=== PATIENT | female | born 1955 | race Caucasian/White ===

== ENCOUNTER → 2016-06-16 | Outpatient (CLI) | payer OTHER | END | disposition home or self-care (01) | LOC: MRI 06:53 | PROVIDERS: ATTEND Orthopaedic Surgery Sports Medicine | DX: S46.211A Strain of muscle, fascia and tendon of other parts of biceps, right arm, initial encounter (principal); M75.111 Incomplete rotator cuff tear or rupture of right shoulder, not specified as traumatic; X58.XXXA Exposure to other specified factors, initial encounter; Y93.89 Activity, other specified; Y92.89 Other specified places as the place of occurrence of the external cause; Y99.8 Other external cause status | CPT/HCPCS: 73221 ==

== ENCOUNTER → 2016-08-18 | Outpatient (CLI) | payer BC | END | disposition home or self-care (01) | LOC: LAB 08:33 | DX: T84.84XA Pain due to internal orthopedic prosthetic devices, implants and grafts, initial encounter (principal); X58.XXXA Exposure to other specified factors, initial encounter | CPT/HCPCS: 36415; 85651; 86140 ==

== ENCOUNTER → 2016-10-19 | Outpatient (CLI) | payer BC | END | disposition home or self-care (01) | LOC: MAMMO 06:23 | PROVIDERS: ATTEND Obstetrics & Gynecology Obstetrics | DX: Z12.31 Encounter for screening mammogram for malignant neoplasm of breast (principal) | CPT/HCPCS: G0202 ==

== ENCOUNTER → 2017-10-06 | Outpatient (CLI) | payer OTHER | END | disposition home or self-care (01) | LOC: MRI 07:53 | PROVIDERS: ATTEND Specialist | DX: M48.07 Spinal stenosis, lumbosacral region (principal); M47.896 Other spondylosis, lumbar region | CPT/HCPCS: 72148 ==

== ENCOUNTER → 2017-10-25 | Outpatient (CLI) | payer BC ==
[2017-10-25 08:42] LABS: BASOPHILS % 0.9 % (0.0-2.0); EOSINOPHILS % 3.4 % (0.0-5.0); HEMATOCRIT. 41.1 % (36.0-48.0); HEMOGLOBIN. 14.3 g/dL (12.0-16.0); LYMPHOCYTES % 30.3 % (20.0-50.0); MEAN CORPUSCULAR HEMOGLOBIN 33.3 pg (28.0-32.0); MEAN CORPUSCULAR VOLUME 95.6 fL (81.0-99.0); MONOCYTES % 12.7 % (2.0-8.0); NEUTROPHILS % 52.7 % (40.0-76.0); PLATELET 254 x1000/uL (130-400); RED CELL DISTRIBUTION WIDTH 12.6 % (11.6-14.6)
[2017-10-25 09:03] LABS: CHLORIDE 107 mEq/L (98-107)
[2017-10-25 09:13] LABS: LDL CHOLESTEROL 109 mg/dL (5-100)
[2017-10-25 09:17] LABS: HDL CHOLESTEROL 62 mg/dL (40-59)
[2017-10-27 06:19] LABS: CANCER ANTIGEN 125 8.9 U/mL (0.0-38.1)
== END | disposition home or self-care (01) ==
LOC: LAB 07:26 → MERGE 07:26
PROVIDERS: ATTEND Obstetrics & Gynecology Obstetrics
DX: Z12.31 Encounter for screening mammogram for malignant neoplasm of breast (principal); R92.1 Mammographic calcification found on diagnostic imaging of breast; E03.9 Hypothyroidism, unspecified; D64.9 Anemia, unspecified; N83.201 Unspecified ovarian cyst, right side; E55.9 Vitamin D deficiency, unspecified; E78.00 Pure hypercholesterolemia, unspecified; E78.4 Other hyperlipidemia
CPT/HCPCS: 36415; 77067; 80053; 80061; 82306; 83036; 84443; 85025; 86304; 86305

== ENCOUNTER 2018-10-02 03:36 | Emergency (ER) | payer BC, OTHER ==
[~2018-10-02] VITALS: Ht 170.2 cm; Wt 67.0 kg
[2018-10-02 05:18] VITALS: BP 132/78
== END 2018-10-02 05:19 | disposition home or self-care (01) ==
LOC: ER 03:36
DX: J02.9 Acute pharyngitis, unspecified (principal); Z98.890 Other specified postprocedural states
CPT/HCPCS: 87070; 87430; 99281

== ENCOUNTER → 2018-10-20 | Outpatient (CLI) | payer BC ==
[2018-10-20 08:05] LABS: BASOPHILS % 0.9 % (0.0-2.0); EOSINOPHILS % 3.1 % (0.0-5.0); HEMATOCRIT. 38.2 % (36.0-48.0); HEMOGLOBIN. 13.3 g/dL (12.0-16.0); LYMPHOCYTES % 28.6 % (20.0-50.0); MEAN CORPUSCULAR VOLUME 94.7 fL (81.0-99.0); MEAN PLATELET VOLUME 8.5 fl (7.4-10.4); MONOCYTES % 13.1 % (2.0-8.0); NEUTROPHILS % 54.3 % (40.0-76.0); PLATELET 222 x1000/uL (130-400); RED BLOOD CELL COUNT 4.03 mill/uL (4.2-5.4); RED CELL DISTRIBUTION WIDTH 12.6 % (11.6-14.6)
[2018-10-20 08:11] LABS: CHLORIDE 111 mEq/L (98-107)
[2018-10-20 08:18] LABS: LDL CHOLESTEROL 123 mg/dL (5-100)
[2018-10-20 08:19] LABS: HDL CHOLESTEROL 78 mg/dL (40-59)
[2018-10-21 15:14] LABS: PROLACTIN 5.6 ng/mL (4.8-23.3)
[2018-10-23 10:11] LABS: VITAMIN D 1-25 DIHYDROXY 65.9 pg/mL (19.9-79.3)
== END | disposition home or self-care (01) ==
LOC: LAB 06:57
PROVIDERS: ATTEND Obstetrics & Gynecology Obstetrics
DX: Z13.21 Encounter for screening for nutritional disorder (principal); R97.1 Elevated cancer antigen 125 [CA 125]; R94.6 Abnormal results of thyroid function studies; R79.89 Other specified abnormal findings of blood chemistry; D58.2 Other hemoglobinopathies
CPT/HCPCS: 36415; 80061; 82652; 83036; 84146; 84443; 86304; 86305

== ENCOUNTER → 2018-10-23 | Outpatient (CLI) | payer BC | END | disposition home or self-care (01) | LOC: MAMMO 09:25 | PROVIDERS: ATTEND Obstetrics & Gynecology Obstetrics | DX: R92.2 Inconclusive mammogram (principal) | CPT/HCPCS: 76642; 77066 ==

== ENCOUNTER → 2019-11-05 | Outpatient (CLI) | payer BC ==
[2019-11-05 06:31] LABS: EOSINOPHILS % 3.4 % (0.0-5.0); HEMOGLOBIN. 13.8 g/dL (12.0-16.0); LYMPHOCYTES % 31.7 % (20.0-50.0); MEAN CORPUSCULAR VOLUME 93.5 fL (81.0-99.0); MEAN PLATELET VOLUME 8.3 fl (7.4-10.4); NEUTROPHILS % 50.9 % (40.0-76.0); PLATELET 259 x1000/uL (130-400); RED BLOOD CELL COUNT 4.17 mill/uL (4.2-5.4); RED CELL DISTRIBUTION WIDTH 12.6 % (11.6-14.6)
[2019-11-05 06:39] LABS: CLARITY URINE CLEAR (CLEAR); COLOR URINE YELLOW (YELLOW); KETONES URINE NEGATIVE (NEGATIVE); LEUKOCYTE ESTERASE URINE NEGATIVE (NEGATIVE); NITRITE URINE NEGATIVE (NEGATIVE); OCCULT BLOOD URINE TRACE (NEGATIVE); PROTEIN URINE NEGATIVE (NEGATIVE); SPECIFIC GRAVITY URINE 1.015 (1.005-1.030); UROBILINOGEN URINE 0.2 E.U./dL (0.2-1.0)
== END | disposition home or self-care (01) ==
LOC: LAB 06:00
PROVIDERS: ATTEND Obstetrics & Gynecology Obstetrics
DX: Z13.29 Encounter for screening for other suspected endocrine disorder (principal); E78.00 Pure hypercholesterolemia, unspecified; E55.9 Vitamin D deficiency, unspecified; D64.9 Anemia, unspecified; N30.20 Other chronic cystitis without hematuria; Z12.73 Encounter for screening for malignant neoplasm of ovary
CPT/HCPCS: 36415; 80061; 81003; 82306; 82378; 82947; 83036; 85025; 86304

== ENCOUNTER → 2019-11-14 | Outpatient (CLI) | payer BC | END | disposition home or self-care (01) | LOC: LAB 06:37 | PROVIDERS: ATTEND Obstetrics & Gynecology Obstetrics | DX: Z01.812 Encounter for preprocedural laboratory examination (principal); Z20.828 Contact with and (suspected) exposure to other viral communicable diseases | CPT/HCPCS: C9803; U0003 ==

== ENCOUNTER → 2020-08-12 | Outpatient (CLI) | payer BC | END | disposition home or self-care (01) | LOC: US 08:46 | PROVIDERS: ATTEND Internal Medicine | DX: L90.5 Scar conditions and fibrosis of skin (principal) | CPT/HCPCS: 76700 ==

== ENCOUNTER 2020-08-13 08:40 | Emergency (ER) | payer BC ==
[~2020-08-13] VITALS: Ht 167.6 cm; Wt 77.0 kg
[2020-08-13 08:45] VITALS: BP 163/97
== END 2020-08-13 10:15 | disposition left against medical advice (07) ==
LOC: ER 08:42
DX: Z53.21 Procedure and treatment not carried out due to patient leaving prior to being seen by health care provider (principal)

== ENCOUNTER → 2021-03-26 | Outpatient (CLI) | payer MEDICARE, BC ==
[2021-03-26 11:50] LABS: BASOPHILS % 0.9 % (0.0-2.0); EOSINOPHILS % 1.9 % (0.0-5.0); HEMATOCRIT. 38.1 % (36.0-48.0); HEMOGLOBIN. 13.5 g/dL (12.0-16.0); LYMPHOCYTES % 26.3 % (20.0-50.0); MEAN CORPUSCULAR VOLUME 93.4 fL (81.0-99.0); MEAN PLATELET VOLUME 8.4 fl (7.4-10.4); MONOCYTES % 10.2 % (2.0-8.0); NEUTROPHILS % 60.7 % (40.0-76.0); PLATELET 250 x1000/uL (130-400); RED BLOOD CELL COUNT 4.08 mill/uL (4.2-5.4); RED CELL DISTRIBUTION WIDTH 13.2 % (11.6-14.6)
[2021-03-26 12:02] LABS: CHLORIDE 110 mEq/L (98-107)
[2021-03-26 12:10] LABS: HDL CHOLESTEROL 73 mg/dL (40-59)
[2021-03-26 12:11] LABS: LDL CHOLESTEROL 114 mg/dL (5-100)
[2021-03-27 04:07] LABS: CANCER ANTIGEN 125 7.9 U/mL (0.0-38.1)
== END | disposition home or self-care (01) ==
LOC: LAB 10:52
PROVIDERS: ATTEND Obstetrics & Gynecology Obstetrics
DX: Z13.220 Encounter for screening for lipoid disorders (principal); E03.9 Hypothyroidism, unspecified; Z13.228 Encounter for screening for other metabolic disorders; Z13.1 Encounter for screening for diabetes mellitus; Z13.0 Encounter for screening for diseases of the blood and blood-forming organs and certain disorders involving the immune mechanism; Z85.43 Personal history of malignant neoplasm of ovary
CPT/HCPCS: 36415; 80053; 80061; 82378; 83036; 84443; 85025; 86301; 86304; 86305

== ENCOUNTER → 2021-12-28 | Outpatient (CLI) | payer MEDICARE, BC | END | disposition home or self-care (01) | LOC: MAMMO 07:31 | PROVIDERS: ATTEND Obstetrics & Gynecology Obstetrics | DX: Z12.31 Encounter for screening mammogram for malignant neoplasm of breast (principal) | CPT/HCPCS: 77067 ==

== ENCOUNTER → 2022-01-19 | Outpatient (CLI) | payer MEDICARE, BC ==
[2022-01-19 08:52] LABS: BASOPHILS % 0.8 % (0.0-2.0); EOSINOPHILS % 3.8 % (0.0-5.0); HEMATOCRIT. 39.9 % (36.0-48.0); HEMOGLOBIN. 13.8 g/dL (12.0-16.0); MEAN CORPUSCULAR HEMOGLOBIN 32.7 pg (28.0-32.0); MEAN CORPUSCULAR VOLUME 94.5 fL (81.0-99.0); MEAN PLATELET VOLUME 8.6 fl (7.4-10.4); MONOCYTES % 11.7 % (2.0-8.0); NEUTROPHILS % 52.7 % (40.0-76.0); PLATELET 253 x1000/uL (130-400); RED BLOOD CELL COUNT 4.22 mill/uL (4.2-5.4); RED CELL DISTRIBUTION WIDTH 13.2 % (11.6-14.6)
[2022-01-19 09:32] LABS: VITAMIN B12 SERUM 793 pg/mL (211-911)
[2022-01-19 09:57] LABS: CHLORIDE 112 mEq/L (98-107)
[2022-01-19 10:12] LABS: HDL CHOLESTEROL 68 mg/dL (40-59); LDL CHOLESTEROL 118 mg/dL (5-100)
[2022-01-20 09:06] LABS: VITAMIN D 25-OH 37.1 ng/mL (30.0-100.0)
[2022-01-20 10:07] LABS: ANTI-NUCLEAR ANTIBODIES DIRECT Negative (Negative)
== END | disposition home or self-care (01) ==
LOC: LAB 07:27
PROVIDERS: ATTEND Internal Medicine
DX: R53.83 Other fatigue (principal); B02.9 Zoster without complications; M15.9 Polyosteoarthritis, unspecified; E78.5 Hyperlipidemia, unspecified; Z86.2 Personal history of diseases of the blood and blood-forming organs and certain disorders involving the immune mechanism
CPT/HCPCS: 36415; 80053; 80061; 82306; 82607; 83036; 84443; 85025; 85651; 86038; 86430

== ENCOUNTER → 2022-09-30 | Outpatient (CLI) | payer MEDICARE, BC ==
[2022-09-30 10:40] LABS: EOSINOPHILS % 3.1 % (0.0-5.0); HEMATOCRIT. 39.7 % (36.0-48.0); HEMOGLOBIN. 13.7 g/dL (12.0-16.0); LYMPHOCYTES % 33.3 % (20.0-50.0); MEAN CORPUSCULAR HEMOGLOBIN 32.8 pg (28.0-32.0); MEAN CORPUSCULAR HGB CONC 34.6 g/dL (31.0-37.0); MEAN CORPUSCULAR VOLUME 94.8 fL (81.0-99.0); MEAN PLATELET VOLUME 8.4 fl (7.4-10.4); MONOCYTES % 12.4 % (2.0-8.0); NEUTROPHILS % 50.2 % (40.0-76.0); PLATELET 260 x1000/uL (130-400); RED BLOOD CELL COUNT 4.19 mill/uL (4.2-5.4); RED CELL DISTRIBUTION WIDTH 12.7 % (11.6-14.6); WHITE BLOOD COUNT 3.8 x1000/uL (4.5-11.0)
[2022-09-30 11:01] LABS: THYROID STIMULATING HORMONE 2.5 uIU/mL (0.36-3.74)
[2022-10-01 08:08] LABS: CA 19-9 < 2 U/mL (0-35); CANCER ANTIGEN 125 6.1 U/mL (0.0-38.1); HUMAN EPIDIDYMIS PROTEIN 4 48.8 pmol/L (0.0-96.5)
== END | disposition home or self-care (01) ==
LOC: LAB 10:03
PROVIDERS: ATTEND Obstetrics & Gynecology Obstetrics
DX: Z13.220 Encounter for screening for lipoid disorders (principal); Z13.228 Encounter for screening for other metabolic disorders; Z13.29 Encounter for screening for other suspected endocrine disorder; Z13.0 Encounter for screening for diseases of the blood and blood-forming organs and certain disorders involving the immune mechanism; Z13.1 Encounter for screening for diabetes mellitus; D39.0 Neoplasm of uncertain behavior of uterus
CPT/HCPCS: 36415; 80061; 82378; 83036; 84443; 85025; 86301; 86304; 86305

== ENCOUNTER → 2022-11-10 | Outpatient (CLI) | payer MEDICARE, BC | END | disposition home or self-care (01) | LOC: MRI 08:06 | DX: S46.011A Strain of muscle(s) and tendon(s) of the rotator cuff of right shoulder, initial encounter (principal); M19.011 Primary osteoarthritis, right shoulder; X58.XXXA Exposure to other specified factors, initial encounter; Y93.89 Activity, other specified; Y92.89 Other specified places as the place of occurrence of the external cause; Y99.8 Other external cause status | CPT/HCPCS: 73221 ==

== ENCOUNTER → 2023-04-21 | Outpatient (CLI) | payer MEDICARE, BC | END | disposition home or self-care (01) | LOC: MAMMO 10:38 | PROVIDERS: ATTEND Obstetrics & Gynecology Obstetrics | DX: Z12.31 Encounter for screening mammogram for malignant neoplasm of breast (principal) | CPT/HCPCS: 77063; 77067 ==

== ENCOUNTER → 2024-10-07 | Outpatient (CLI) | payer MEDICARE, BC ==
[2024-10-07 10:52] LABS: BASOPHILS % 0.7 % (0.0-2.0); EOSINOPHILS % 0.4 % (0.0-5.0); HEMATOCRIT. 39.3 % (36.0-48.0); HEMOGLOBIN. 13.4 g/dL (12.0-16.0); LYMPHOCYTES % 26.5 % (20.0-50.0); MEAN PLATELET VOLUME 8.4 fl (7.4-10.4); MONOCYTES % 11.3 % (2.0-8.0); NEUTROPHILS % 61.1 % (40.0-76.0); PLATELET 263 x1000/uL (130-400); RED BLOOD CELL COUNT 4.12 mill/uL (4.2-5.4); RED CELL DISTRIBUTION WIDTH 12.9 % (11.6-14.6)
[2024-10-07 11:09] LABS: CREATININE 0.9 mg/dL (0.6-1.0); TRIGLYCERIDE 79 mg/dL (0-150); UREA NITROGEN BLOOD 27 mg/dL (9-23)
[2024-10-07 11:10] LABS: ASPARTATE AMINOTRANSFERASE 25 IU/L (<34); LDL CHOLESTEROL 124 mg/dL (5-100)
[2024-10-07 11:11] LABS: BILIRUBIN TOTAL 0.5 mg/dL (0.1-1.0); PROTEIN TOTAL 6.3 g/dL (6.0-8.3)
== END | disposition home or self-care (01) ==
LOC: LAB 10:24
PROVIDERS: ATTEND Obstetrics & Gynecology Obstetrics
DX: Z13.228 Encounter for screening for other metabolic disorders (principal); E78.00 Pure hypercholesterolemia, unspecified; Z13.0 Encounter for screening for diseases of the blood and blood-forming organs and certain disorders involving the immune mechanism; Z13.1 Encounter for screening for diabetes mellitus; Z13.220 Encounter for screening for lipoid disorders; Z13.29 Encounter for screening for other suspected endocrine disorder
CPT/HCPCS: 36415; 80053; 80061; 83036; 84443; 85025